=== PATIENT | female | born 1995 | race Caucasian/White ===

== ENCOUNTER → 2019-03-16 | Outpatient (CLI) | payer BC ==
[2019-03-16 17:15] LABS: BASO % 0.2 % (0.0-1.0); EOS % 0.3 % (0.0-3.0); HEMATOCRIT 36.1 % (36.0-47.0); HEMOGLOBIN 12.3 g/dl (12.0-15.5); LYMPH # 1.6 10^3/uL (1.5-5.0); MEAN CORPUSCULAR HEMOGLOBIN 31.8 pg (27.0-33.0); MEAN CORPUSCULAR HGB CONC 34.1 g/dl (32.0-36.5); MEAN CORPUSCULAR VOLUME 93.3 fl (80.0-96.0); MONO # 0.5 10^3/uL (0.0-0.8); MONO % 7.3 % (0.0-5.0); NEUTROPHILS # 4.4 10^3/uL (1.5-8.5); NEUTROPHILS % 66.9 % (36.0-66.0); PLATELET COUNT, AUTOMATED 191 10^3/uL (150-450); RED BLOOD COUNT 3.87 10^6/uL (4.00-5.40); WHITE BLOOD COUNT 6.6 10^3/uL (4.0-10.0)
[2019-03-16 18:06] LABS: CHLAMYDIA DNA AMPLIFICATION NEGATIVE (NEGATIVE); GC DNA AMPLIFICATION NEGATIVE (NEGATIVE)
[2019-03-17 07:44] LABS: HEPATITIS C VIRUS ABY INDEX 0.1 INDEX (<0.8); HIV 1&2 SCREEN CENTAUR NEGATIVE (NEGATIVE); RUBELLA IgG QUALITATIVE IMMUNE (IMMUNE)
== END ==
LOC: M WUC 13:37
PROVIDERS: ATTEND Advanced Practice Midwife
DX: Z36.89 Encounter for other specified antenatal screening (principal)

== ENCOUNTER 2019-03-30 02:49 | Emergency (ER) | payer BC ==
[~2019-03-30] VITALS: Ht 157.5 cm; Wt 54.8 kg
[2019-03-30] MEDS ORDERED: MACR100C43 PO (02:53)
[2019-03-30] MEDS ORDERED: PRENTAB7 PO (02:53)
[2019-03-30 05:15] LABS: BASO % 0.3 % (0.0-1.0); EOS % 0.2 % (0.0-3.0); HEMATOCRIT 34.7 % (36.0-47.0); HEMOGLOBIN 12.2 g/dl (12.0-15.5); LYMPH % 8.6 % (24.0-44.0); MEAN CORPUSCULAR HEMOGLOBIN 32.3 pg (27.0-33.0); MEAN CORPUSCULAR HGB CONC 35.2 g/dl (32.0-36.5); MEAN CORPUSCULAR VOLUME 91.8 fl (80.0-96.0); MONO # 0.5 10^3/uL (0.0-0.8); MONO % 4.3 % (0.0-5.0); NEUTROPHILS # 9.8 10^3/uL (1.5-8.5); NEUTROPHILS % 86.2 % (36.0-66.0); PLATELET COUNT, AUTOMATED 183 10^3/uL (150-450); RED BLOOD COUNT 3.78 10^6/uL (4.00-5.40); WHITE BLOOD COUNT 11.4 10^3/uL (4.0-10.0)
--- NOTE | 2019-03-30 05:55 | ECGEPIP ---
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
[2019-03-30 05:58] LABS: BLOOD UREA NITROGEN 7 MG/DL (7-18); CALCIUM LEVEL 8.5 MG/DL (8.5-10.1); CARBON DIOXIDE LEVEL 24 MEQ/L (21-32); CHLORIDE LEVEL 106 MEQ/L (98-107); CK-MB VALUE MASS < 1.0 NG/ML (<3.6); CPK CREATINE PHOSPHOKINASE 79 U/L (26-192); CREATININE FOR GFR 0.56 MG/DL (0.55-1.30); GLOMERULAR FILTRATION RATE > 60.0 (>60); GLUCOSE, FASTING 85 MG/DL (70-100); MB/CK RELATIVE INDEX 1.27 (< OR =4); SODIUM LEVEL 138 MEQ/L (136-145); TROPONIN I 0.06 NG/ML (< 0.10)
[2019-03-30] MEDS ORDERED: HOLTER MONITOR XX (06:20)
[2019-03-30 06:24] VITALS: BP 94/58
== END 2019-03-30 06:32 | disposition home or self-care (01) ==
LOC: M ED 02:49
DX: R00.2 Palpitations (principal); Z33.1 Pregnant state, incidental; Z79.899 Other long term (current) drug therapy

== ENCOUNTER → 2019-05-12 | Outpatient (REF) | payer BC ==
[~2019-05-12] MED LIST: HOLTER MONITOR XX; MACR100C43 PO; PRENTAB7 PO
== END ==
LOC: M SFHCWAGY 13:23
PROVIDERS: ATTEND Advanced Practice Midwife
DX: Z34.02 Encounter for supervision of normal first pregnancy, second trimester (principal)

== ENCOUNTER → 2019-05-22 | Outpatient (CLI) | payer BC ==
--- NOTE | 2019-05-22 11:01 | REP ---
OBSTETRIC SONOGRAPHY: HISTORY: Supervision of for anatomy. FINDINGS: Scanning through the gravid uterus demonstrates a viable single intrauterine gestation in variable lie. motion is observed and heart rate is recorded at 147 beats per minute. A posterior grade 0 placenta is seen without evidence of abruption. On sagittal transabdominal images, the placental tissue appears to extend to the level of the internal cervical os in a marginal orientation. Followup is suggested. No extrauterine abnormality is observed. No anomaly is seen. The right ventricular cardiac outflow tract view is less than optimally seen due to position. The following additional anatomic structures are identified and felt to be unremarkable: cranium, choroid plexus, cavum, cerebellum posterior fossa, face and profile, lungs, four-chamber heart with left ventricular outflow tract view, diaphragm, left-sided stomach, abdominal wall cord insertion, three-vessel cord, kidneys and bladder, spine, upper and lower extremities. BIOMETRY CHART: BPD 3.8 cm = 17 weeks 5 days HC 16.6 cm = 19 weeks 2 days AC 14.4 cm = 19 weeks 5 days FL 2.9 cm = 19 weeks 0 days HL 2.9 cm = 19 weeks 4 days HC/AC ratio normal 1.16. Cephalic index 0.59 (0.70-0.86). Estimated weight 285 grams, 0 pounds 10 ounces, 27 percentile for 19-week 6 days. IMPRESSION: Viable single intrauterine gestation at 19 weeks 0 days by today's composite sonographic criteria. MYLES by today's sonography October 16, 2019. Right ventricular cardiac outflow tract was less than optimally seen. anatomic survey is otherwise complete. There is a marginal placenta previa at this juncture. Followup imaging is recommended with transvaginal scanning if warranted. Electronically Signed by Pancho Mireles MD 05/22/2019 11:39 A
== END ==
LOC: M RAD 08:28
PROVIDERS: ATTEND Advanced Practice Midwife
DX: Z34.02 Encounter for supervision of normal first pregnancy, second trimester (principal); Z3A.19 19 weeks gestation of pregnancy

== ENCOUNTER → 2019-06-23 | Outpatient (CLI) | payer BC ==
--- NOTE | 2019-06-23 15:35 | REP ---
Obstetric sonography: History: Followup anatomy. Marginal placenta previa. Findings: Scanning through the gravid uterus demonstrates a viable single intrauterine gestation in a breech lie. motion is observed and heart rate is recorded at 136 beats per minute. A low-lying posterior placenta is seen with evidence of marginal or low-lying placenta, placenta tip is 1.8 cm from the internal cervical os on transvaginal images. Closed cervical length is 3.3 cm measured transvaginally. No extrauterine abnormalities observed. There has been appropriate interval growth. There is a trace of fluid around the heart during the examination. No other abnormality is seen. The following anatomic structures are identified and felt to be sonographically unremarkable: cranium, choroid plexus, cavum, cerebellum and posterior fossa, face and profile, lungs, four-chamber heart with left ventricular outflow tract view, diaphragm, left-sided stomach, abdominal wall cord insertion, three-vessel umbilical cord, kidneys and bladder, spine, upper and lower extremities. The right ventricular cardiac outflow tract view is still less than optimally seen due to position. Biometry chart: BPD 5.4 cm = 22 weeks 3 days HC 21.7 cm = 23 weeks 5 days AC 18.5 cm = 23 weeks 2 days FL 4.1 cm = 23 weeks 2 days HL 3.8 cm = 23 weeks 3 days HC/AC ratio normal 1.17. Cephalic index 0.66 (0.70-0.86. Estimated weight 588 grams/1 pound 4 ounces/14th percentile for 24 weeks 3 days. Impression: Viable single intrauterine gestation at 23 weeks 1 day by today's composite sonographic criteria. Low-lying posterior placenta, 1.8 cm from the internal cervical os. Small amount of pericardial fluid noted.
== END ==
LOC: M WHC 08:23
PROVIDERS: ATTEND Advanced Practice Midwife
DX: O44.20 Partial placenta previa NOS or without hemorrhage, unspecified trimester (principal); O32.1XX0 Maternal care for breech presentation, not applicable or unspecified; Z3A.23 23 weeks gestation of pregnancy

== ENCOUNTER → 2019-07-07 | Outpatient (CLI) | payer BC, MEDICAID ==
[2019-07-07 18:38] LABS: HEMATOCRIT 32.1 % (36.0-47.0); HEMOGLOBIN 10.5 g/dl (12.0-15.5); MEAN CORPUSCULAR HGB CONC 32.7 g/dl (32.0-36.5); MEAN CORPUSCULAR VOLUME 97.9 fl (80.0-96.0); PLATELET COUNT, AUTOMATED 219 10^3/uL (150-450); RED BLOOD COUNT 3.28 10^6/uL (4.00-5.40)
== END ==
LOC: M PLALAB 14:27
PROVIDERS: ATTEND Advanced Practice Midwife
DX: O44.42 Low lying placenta NOS or without hemorrhage, second trimester (principal); Z3A.00 Weeks of gestation of pregnancy not specified

== ENCOUNTER → 2019-07-21 | Outpatient (CLI) | payer BC, MEDICAID ==
--- NOTE | 2019-07-21 09:41 | REP ---
Clinical: Anatomical evaluation. Comparison: [birth year]/1928 . Findings: Examination demonstrates a single live intrauterine in cephalic presentation. motion is identified by technologist. Placenta is noted posteriorly, grade 1 and low-lying approximately 1.9 cm from the closed internal os. No evidence for abruption. Amniotic fluid volume is normal. Cervix measures 3.6 cm in length and appears closed. No evidence for nuchal cord. Gestational age by LMP 28 weeks 3 days with MYLES 10/10/2019 . Gestational age by current measurements 27 weeks 3 days with MYLES 10/17/2019 . FHR equals 147 beats per minute. Estimated weight 1111 grams ( 24th percentile). Anatomical assessment demonstrates normal structures including cranium, facial features, lungs, right ventricular outflow tract, diaphragm, stomach, cord insertion/three-vessel cord, kidneys/bladder, and spine. Impression: 1. Single live intrauterine in cephalic presentation demonstrating appropriate interval growth. 2. Posterior low-lying grade 1 placenta. 3. In conjunction with prior examination anatomical assessment is complete and normal.
== END ==
LOC: M WHC 08:08
PROVIDERS: ATTEND Advanced Practice Midwife
DX: O44.42 Low lying placenta NOS or without hemorrhage, second trimester (principal); Z3A.28 28 weeks gestation of pregnancy

== ENCOUNTER → 2019-08-22 | Outpatient (CLI) | payer BC, MEDICAID ==
--- NOTE | 2019-08-22 12:02 | REP ---
OBSTETRIC SONOGRAPHY: HISTORY: Supervision of a third trimester. Followup low-lying placenta. Comparison study July 21, 2019. Findings: Transabdominal scanning demonstrates a single intrauterine gestation in a cephalic lie. motion is observed and heart rate is recorded at 152 beats per minute. A posterior grade 2 placenta is seen without evidence of previa or abruption. Amniotic fluid is subjectively normal. Closed cervical length measures 3.3 cm transabdominally. No extrauterine abnormality is observed. There has been appropriate interval growth. There is no evidence of low-lying placenta at this point. The following anatomic structures are identified and felt to be unremarkable today: cranium, face and profile, diaphragm, left-sided stomach, three-vessel cord, kidneys and bladder. Biometry Chart: BPD 7.9 cm = 31 weeks 4 days HC 28.7 cm = 31 weeks 4 days AC 27.8 cm = 31 weeks 6 days FL 6.1 cm = 31 weeks 5 days HL 5.5 cm = 32 weeks 0 days HC/AC ratio normal 1.03 Cephalic index normal 0.77 Estimated weight 1826 grams, 4 pounds 0 ounces, 20th percentile for 33 weeks 0 days. OG normal 11.0 cm. IMPRESSION: Viable single intrauterine gestation at 31 weeks 2 days by today's composite sonographic criteria. Expected gestational age estimate based on prior sonography is 33 weeks 0 days. MYLES by prior sonography October 10, 2019. A posterior grade 2 placenta without evidence of previa or abruption.
== END ==
LOC: M WHC 08:12
PROVIDERS: ATTEND Advanced Practice Midwife
DX: O44.43 Low lying placenta NOS or without hemorrhage, third trimester (principal)

== ENCOUNTER → 2019-09-11 | Outpatient (REF) | payer BC, MEDICAID, OTHER ==
[~2019-09-11] MED LIST changes: +TUMS500C PO
== END ==
LOC: M SFHCWAGY 10:26
PROVIDERS: ATTEND Nurse Practitioner Women's Health
DX: O44.43 Low lying placenta NOS or without hemorrhage, third trimester (principal)

== ENCOUNTER 2019-09-28 16:16 | Outpatient (CLI) | payer BC, MEDICAID ==
[~2019-09-28] VITALS: Ht 157.5 cm; Wt 67.6 kg
[~2019-09-28 16:16] MED LIST changes: -TUMS500C PO
[2019-09-28 16:34] VITALS: BP 144/86
[2019-09-28 16:45] VITALS: BP 124/72
--- NOTE | 2019-09-28 22:52 | IPN ---
DATE: 09/28/2019 24-year-old, G1, P0 female at 38-2/7 weeks gestation by 9-week ultrasound presents with decreased movement for the last 2 hours. She has actually felt no movements for the last 2 hours. She tried kick counts. The baby is usually very active. She presents to triage. OBJECTIVE: Blood pressure 124/72, pulse 89. No apparent distress. HEAD/NECK EXAM: Normal. LUNGS: Clear. HEART: Regular rate and rhythm. ABDOMEN: Nontender. Gravid. heart tones are category 1. Contractions none. ASSESSMENT: 24-year-old, G1 at 38 and 2 with decreased movement; testing reassuring. PLAN: Patient may discharge to home. Patient perceived numerous movements once she reported to triage. Followup in the office as scheduled.
== END 2019-09-28 17:20 | disposition home or self-care (01) ==
LOC: M LDO 16:16
PROVIDERS: ATTEND Advanced Practice Midwife
DX: O36.8130 Decreased fetal movements, third trimester, not applicable or unspecified (principal); Z3A.38 38 weeks gestation of pregnancy
CPT/HCPCS: 59025; G0378; G0463

== ENCOUNTER 2019-10-11 15:37 | Inpatient (IN) | payer BC, OTHER ==
[~2019-10-11] VITALS: Ht 157.5 cm; Wt 69.1 kg
[2019-10-11 15:53] VITALS: BP 125/97
[2019-10-11] MEDS ORDERED: TUMS500C PO (15:59)
[2019-10-11 16:16] VITALS: BP 119/79
--- NOTE | 2019-10-11 17:21 | HPEPDOC ---
Obstetrical History & Physical General Date of Admission October 11, 2019 at 16:43 Primary Care Physician: A History of Present Illness Shaneka is a 24 year old at 40.1 EGA with an MYLES of 10/10/19 by first trimester US. She presented to labor and delivery complaining of contractions and leakage of clear fluid since 14:00. She initiated care in the first trimester and has been compliant throughout. Age: 24 : 1 Term: 0 Pre-term: 0 Abortions: 0 Livin Care Care: Good Care Dating Final EDC: October 10, 2019 EGA at Admission: 40.1 Past Medical History Past Medical History Medical History Anxiety, PCOS, viral meningitis at age 5 Surgical History: Tonsilectomy, Other (tympanostomy) Family History Significant Family History: No pertinent family hx Social History Marital Status: Family situation: Spouse/partner home Psychosocial History: Anxiety * Smoker: non-smoker Alcohol: Denies Drugs: denies Imunizations Tdap status: current Allergies Coded Allergies: No Known Allergies (Unverified , 03/30/19) Medications Scheduled Calcium Carbonate (Tums) 200 Mg Tab.chew, 2 TAB PO QID for cough and congestion Pnv No.95/Ferrous Fum/Folic AC ( Vitamins Tablet) 1 Each Tablet, 1 TAB PO DAILY Physical Examination Physical Examination GENERAL: Alert and oriented times three. BREAST: . ABDOMEN: Gravid and non-tender to touch. FETUS: Is vertex (VTX) by sterile vaginal examination (SVE), fetus is vertex (VTX) by Jose. HEART RATE: Regular rate and rhythm. LUNGS: Clear to auscultation (CTA). EXTREMITIES: No edema. No clonus. Deep tendon reflexes (DTRs) + . Vital Signs/I&O Vital Signs Date Time Temp Pulse Resp B/P (MAP) Pulse Ox O2 Delivery O2 Flow Rate FiO2 10/11/19 15:53 98.2 80 125/97 (106) Pertinent Laboratoy Data Blood Type: A+ RBC Antibody Screen: Negative HIV: Negative Hepatitis B: Negative Hepatitis C: Negative Rapid Plasma Reagin: Nonreactive Rubella: Immune Chlamydia/Gonorrhea: Negative Group B Streptococcus: Negative Glucose Tolerance Test: 130 (at 1 hour) Other Ultrasounds 05/22/19: Viable single intrauterine gestation at 19 weeks 0 days by today's composite sonographic criteria. MYLES by today's sonography October 16, 2019. Right ventricular cardiac outflow tract was less than optimally seen. anatomic survey is otherwise complete. There is a marginal placenta previa at this juncture. Followup imaging is recommended with transvaginal scanning if warranted 06/23/19: Viable single intrauterine gestation at 23 weeks 1 day by today's composite sonographic criteria. Low-lying posterior placenta, 1.8 cm from the internal cervical os. Small amount of pericardial fluid noted. 07/21/19: Single live intrauterine in cephalic presentation demonstrating appropriate interval growth. Posterior low-lying grade 1 placenta. In conjunction with prior examination anatomical assessment is complete and normal. 08/22/19: Viable single intrauterine gestation at 31 weeks 2 days by today's composite sonographic criteria. Expected gestational age estimate based on prior sonography is 33 weeks 0 days. MYLES by prior sonography October 10, 2019. A posterior grade 2 placenta without evidence of previa or abruption Vaginal Examination Dilation: 2cm Effacement: 80% Station: -2 Cervical Consistency: Soft Cervical Position: Posterior Presentation: Cephalic presentation Position: Vertex (occiput) (by Jose's) Assessment Heart Rate (FHR): 145 Variability: Moderate Accelerations: None Decelerations: None Assessment/Plan Assessment Shaneka is a 24-year-old (G)1 para (P)0-0-0-0 at 40+1 weeks by first trimester ultrasound. Presents to Labor and Delivery (L&D) complaining of leakage of fluid and contractions starting at 1400. 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 Diet: regular. Group B Streptococcus (GBS) negative. Labs and intravenous (IV) per unit protocol. Counseled on Pitocin and augmentation of labor (IOL) if necessary. Desires epidural for coping, anesthesia consult. Anticipate normal spontaneous delivery (). C-S as appropriate. GME ATTESTATION GME ATTESTATION My faculty preceptor for this patient encounter was physically present during the encounter and was fully available. All aspects of the patient interview, examination, medical decision making process, and medical care plan development were reviewed and approved by the faculty preceptor. The faculty preceptor is aware and concurs with the plan as stated in the body of this note and will attest to such by his/her cosignature. CARLEE WATERS D.O. October 11, 2019 17:21
[2019-10-11 17:38] LABS: HEMATOCRIT 32.8 % (36.0-47.0); HEMOGLOBIN 11.1 g/dl (12.0-15.5); MEAN CORPUSCULAR HEMOGLOBIN 30.4 pg (27.0-33.0); MEAN CORPUSCULAR HGB CONC 33.8 g/dl (32.0-36.5); MEAN CORPUSCULAR VOLUME 89.9 fl (80.0-96.0); PLATELET COUNT, AUTOMATED 214 10^3/uL (150-450); RED BLOOD COUNT 3.65 10^6/uL (4.00-5.40); WHITE BLOOD COUNT 9.9 10^3/uL (4.0-10.0)
[2019-10-11 17:45] VITALS: BP 120/78
[2019-10-11] MEDS ORDERED: FENTANYL 2MCG/ML ROPIVACAINE 0.2% IN 0.9% NACL 100ML IVBAG As Ordered ONE (19:12)
[2019-10-11] MEDS ORDERED: REFRIGERATOR IV KEYS XX PRN (19:45)
[2019-10-11] MEDS ORDERED: ONDANSETRON 4MG/2ML VIAL IV PRN (19:45)
[2019-10-11] MEDS ORDERED: EPIDURAL COMMENT XX SCH (19:45)
[2019-10-11] MEDS ORDERED: ePHEDrine SULFATE 25 MG/5 ML(5MG/ML) SYRINGE IV PRN (19:45)
[2019-10-11] MEDS ORDERED: diphenhydrAMINE 50MG/ML VIAL (J1200) IV PRN (19:45)
[2019-10-11] MEDS ORDERED: NALOXONE INJ 0.4MG/1ML VIAL (J2310 PER 1MG) IV PRN (19:45)
[2019-10-11] MEDS ORDERED: EPIDURAL/PCA KEYS XX PRN (19:45)
[2019-10-11] MEDS ORDERED: FENTANYL/ROPIVACAINE/NACL BAG 100 ML EPIDURAL SCH (19:45)
[2019-10-11] MEDS ORDERED: LR 1,000 ML IV SCH (20:03)
[2019-10-11] MEDS ORDERED: OXYTOCIN DRIP 30 UNITS in IV 1 EA IV SCH (20:15)
[2019-10-11] MEDS ORDERED: ACETAMINOPHEN 500 MG TAB PO PRN (22:45)
[2019-10-12 01:13] LABS: CORD GAS ABE V -10.3; CORD GAS HCO3 V 18.1 MEQ/L; CORD GAS O2 SAT V 51.1 %; CORD GAS PCO2 V 48.4 mmHg; CORD GAS PH V 7.19 UNITS; CORD GAS PO2 V 26.9 mmHg; CORD GAS SBC V 15.5 MEQ/L; CORD GAS TCO2 V 19.6 MEQ/L
[2019-10-12] MEDS ORDERED: OXYTOCIN DRIP 30 UNITS in IV 1 EA IV SCH (01:28)
[2019-10-12] MEDS ORDERED: LIDOCAINE 1% MDV 20ML VIAL INFIL ONE (01:30)
[2019-10-12] MEDS ORDERED: RHOGAM 300 MCG (1500 IU) INJ (J2790) IM SCH (01:30)
[2019-10-12] MEDS ORDERED: ACETAMINOPHEN TAB 650MG DOSE (2X325MG) PO PRN (01:30)
[2019-10-12] MEDS ORDERED: IBUPROFEN 600 MG TAB PO PRN (01:30)
[2019-10-12] MEDS ORDERED: DIBUCAINE 1% OINTMENT 30GM TOP PRN (01:30)
[2019-10-12] MEDS ORDERED: DOCUSATE SODIUM 100 MG CAP PO PRN (01:30)
[2019-10-12] MEDS ORDERED: METHYLERGONOVINE MALEATE 0.2 MG TAB PO PRN (01:30)
[2019-10-12] MEDS ORDERED: MEASLES,MUMPS,RUBELLA VACCINE INJ (MMR-II) (90707) SC SCH (01:30)
[2019-10-12 04:13] VITALS: BP 114/65
[2019-10-12 05:35] VITALS: BP 122/61
[2019-10-12] MEDS ORDERED: INFLUENZA QUADRIVALENT PF VACCINE 0.5ML SYRINGE (90686) IM ONE (09:00)
[2019-10-12] MEDS: PRENATAL VITAMINS CHEWABLE TABLET PO SCH (09:21)
[2019-10-12 18:12] VITALS: BP 127/70
[2019-10-12] MEDS: IBUPROFEN 800 MG TAB PO PRN (21:04)
[2019-10-13 05:54] VITALS: BP 110/62
[2019-10-13] MEDS: PRENATAL VITAMINS CHEWABLE TABLET PO SCH (09:39)
[2019-10-13] MEDS: IBUPROFEN 800 MG TAB PO PRN (16:27)
--- NOTE | 2019-10-13 17:17 | DN ---
DATE: 10/12/2019 PREDELIVERY DIAGNOSIS: A 40+ weeks gestation, labor. POSTDELIVERY DIAGNOSIS: Delivered. PROCEDURE: Spontaneous vaginal delivery. SECURITY DELIVERY SPECIALIST: Dr. Kalia Blake ANESTHESIA: Epidural. ESTIMATED BLOOD LOSS: 300 mL. FINDINGS: A 6-pound 10-pounce, 2994 gram female . Venous blood gas 7, 21, 9, base excess -10.3. DELIVERY SUMMARY: After 1 hour second stage of labor, patient had spontaneous delivery of a 6-pouind 10-ounce female infant under epidural anesthesia. Nuchal cord times one was reduced manually. Shoulders delivered with ease. The was handed to the mother. The cord was doubly clamped and cut. Placenta delivered spontaneously and appeared to be intact. Patient received intravenous (IV) Pitocin immediately after delivery of the placenta. A second-degree perineal laceration was repaired under local anesthesia with 2-0 chromic in the usual fashion. Sponge and needle counts were correct.
[2019-10-13 18:10] VITALS: BP 139/88
[2019-10-13] MEDS: ACETAMINOPHEN 500 MG TAB PO PRN (18:14)
[2019-10-14 06:06] VITALS: BP 127/78
[2019-10-14] MEDS: PRENATAL VITAMINS CHEWABLE TABLET PO SCH (07:55)
[2019-10-14] MEDS: ACETAMINOPHEN 500 MG TAB PO PRN (14:02)
== END 2019-10-14 13:50 | disposition home or self-care (01) | DRG 560 ==
LOC: M LDO 15:37 → M LDI 16:43 → M OBS 10-12 03:15
PROVIDERS: ADMIT Advanced Practice Midwife; ATTEND Advanced Practice Midwife
PROC: 10E0XZZ Delivery of Products of Conception, External Approach (ICD-10-PCS; principal; 2019-10-12)
PROC: 0KQM0ZZ Repair Perineum Muscle, Open Approach (ICD-10-PCS; 2019-10-12)
DX: O48.0 Post-term pregnancy (principal); Z37.0 Single live birth; Z3A.40 40 weeks gestation of pregnancy; O69.82X0 Labor and delivery complicated by other cord entanglement, without compression, not applicable or unspecified; O70.1 Second degree perineal laceration during delivery

== ENCOUNTER → 2020-03-11 | Outpatient (REF) | payer OTHER ==
[~2020-03-11] MED LIST changes: +TUMS500C PO
== END ==
LOC: M WUC 12:23
PROVIDERS: ATTEND Physician Assistant
DX: J02.9 Acute pharyngitis, unspecified (principal)

== ENCOUNTER → 2020-07-09 | Outpatient (REF) | payer OTHER, MEDICAID ==
[2020-07-09 15:21] LABS: HEMATOCRIT 37.7 % (36.0-47.0); HEMOGLOBIN 12.4 g/dl (12.0-15.5); MEAN CORPUSCULAR HGB CONC 32.9 g/dl (32.0-36.5); MEAN CORPUSCULAR VOLUME 91.3 fl (80.0-96.0); PLATELET COUNT, AUTOMATED 245 10^3/uL (150-450); RED BLOOD COUNT 4.13 10^6/uL (4.00-5.40); WHITE BLOOD COUNT 7.6 10^3/uL (4.0-10.0)
[2020-07-09 16:33] LABS: HEPATITIS C VIRUS ABY INDEX 0.1 INDEX (<0.8); HIV 1&2 SCREEN CENTAUR NEGATIVE (NEGATIVE)
== END ==
LOC: M PLALAB 13:38
PROVIDERS: ATTEND Advanced Practice Midwife
DX: Z34.91 Encounter for supervision of normal pregnancy, unspecified, first trimester (principal)

== ENCOUNTER → 2020-08-06 | Outpatient (REF) | payer OTHER, MEDICAID | LOC: M SFHCWAGY 12:57 | PROVIDERS: ATTEND Advanced Practice Midwife | DX: Z34.91 Encounter for supervision of normal pregnancy, unspecified, first trimester (principal) ==

== ENCOUNTER → 2020-10-10 | Outpatient (REF) | payer MEDICAID, OTHER | LOC: M SFHCWAGY 15:05 | PROVIDERS: ATTEND Advanced Practice Midwife | DX: O23.40 Unspecified infection of urinary tract in pregnancy, unspecified trimester (principal) ==

== ENCOUNTER → 2020-10-24 | Outpatient (CLI) | payer MEDICAID ==
--- NOTE | 2020-10-24 15:29 | REP ---
INDICATION: INTRAUTERINE GROWTH/MYLES 02/05/21. COMPARISON: 10/03/2020. TECHNIQUE: Real-time sonographic evaluation of the gravid uterus performed. FINDINGS: Estimated gestational age is25 weeks 1 day, EDC 02/05/2021. Today's measurements indicate appropriate growth. Presentation: Breech Placenta anterior, grade 1, without evidence of placenta previa. heart rate is recorded at 138 beats per minute. Amniotic fluid is subjectively normal. Closed cervical length is measured at 4.9 cm. Biometry chart: BPD: 61 mm, 24 weeks 5 days, 41st percentile. HC: 236 mm, 25 weeks 5 days, 62nd percentile AC: 213 mm, 25 weeks 5 6 days, 63rd percentile Femur length: 44 mm, 24 weeks 2 days, 33rd percentile HC to AC ratio: 1.11, normal range 1.01-1.20. Estimated weight: 782g, 42nd percentile. anatomy: Cranium: Grossly normal Lateral Ventricles/Choroid Plexus: Grossly normal Posterior Fossa/Cerebellum: Grossly normal Nose/lips/profile: Grossly normal Four chamber heart: Previously documented. Right ventricular outflow tract: Previously documented. Left ventricular outflow tract: Previously documented. Left-sided stomach: Grossly normal Kidneys: Grossly normal Bladder: Grossly normal Cord Insertion: Grossly normal 3 vessel cord: Grossly normal Spine: Grossly normal IMPRESSION: Viable single intrauterine gestation as above. Appropriate growth. <Electronically signed by Travon Murcia > 10/24/20 [id number]
== END ==
LOC: M WHC 13:24
PROVIDERS: ATTEND Advanced Practice Midwife
DX: O36.5930 Maternal care for other known or suspected poor fetal growth, third trimester, not applicable or unspecified (principal); Z3A.24 24 weeks gestation of pregnancy

== ENCOUNTER → 2020-11-07 | Outpatient (REF) | payer OTHER, MEDICAID ==
[2020-11-07 13:20] LABS: HEMATOCRIT 36.5 % (36.0-47.0); HEMOGLOBIN 11.7 g/dl (12.0-15.5); MEAN CORPUSCULAR HEMOGLOBIN 31.4 pg (27.0-33.0); MEAN CORPUSCULAR HGB CONC 32.1 g/dl (32.0-36.5); MEAN CORPUSCULAR VOLUME 97.9 fl (80.0-96.0); PLATELET COUNT, AUTOMATED 203 10^3/uL (150-450); RED BLOOD COUNT 3.73 10^6/uL (4.00-5.40); WHITE BLOOD COUNT 7.5 10^3/uL (4.0-10.0)
== END ==
LOC: M PLALAB 08:46
PROVIDERS: ATTEND Specialist
DX: Z36.89 Encounter for other specified antenatal screening (principal); Z3A.00 Weeks of gestation of pregnancy not specified

== ENCOUNTER → 2020-11-28 | Outpatient (REF) | payer MEDICAID, OTHER | LOC: M SFHCWAGY 16:53 | PROVIDERS: ATTEND Advanced Practice Midwife | DX: O26.892 Other specified pregnancy related conditions, second trimester (principal); O23.42 Unspecified infection of urinary tract in pregnancy, second trimester ==

== ENCOUNTER → 2021-01-16 | Outpatient (REF) | payer MEDICAID, OTHER | LOC: M SFHCWAGY 16:55 | PROVIDERS: ATTEND Obstetrics & Gynecology | DX: Z34.83 Encounter for supervision of other normal pregnancy, third trimester (principal); Z3A.37 37 weeks gestation of pregnancy ==

== ENCOUNTER 2021-02-10 18:05 | Inpatient (IN) | payer OTHER, MEDICAID ==
[2021-02-10] VITALS (12 sets, daily range): BP systolic 109–131; BP diastolic 67–86
[~2021-02-10] VITALS: Ht 157.5 cm; Wt 71.0 kg
[2021-02-10] MEDS ORDERED: LACTATED RINGER'S 1000 ML IV STA (18:39)
[2021-02-10] MEDS ORDERED: OXYTOCIN DRIP 30 UNITS in IV 1 EA IV PRN (18:40)
[2021-02-10] MEDS ORDERED: LIDOCAINE 1% MDV 20ML VIAL INFIL PRN (18:40)
[2021-02-10] MEDS ORDERED: CARBOPROST TROMETHAMINE 250 MCG/ML AMP IM PRN (18:40)
[2021-02-10] MEDS ORDERED: TRANEXAMIC ACID INJection 1,000 MG in NS 100 ML IV PRN (18:40)
[2021-02-10] MEDS ORDERED: METHYLERGONOVINE MALEATE 0.2 MG/ML VIAL (J2210) IM PRN (18:40)
[2021-02-10] MEDS ORDERED: LR 1,000 ML IV SCH (18:40)
[2021-02-10] MEDS ORDERED: HOME MED LIST COMPLETE! XX SCH (19:15)
--- NOTE | 2021-02-10 19:25 | HPEPDOC ---
Obstetrical History & Physical General Date of Admission Feb 10, 2021 at 18:05 Primary Care Physician: ANSON BARRY CNM History of Present Illness Shaneka is a 25-year-old female who is a with an MYLES of 02/05/21 based off of her LMP and consistent with her first trimester ultrasound. She initiated care in her first trimester of at [facility]. Her has been complicated by anxiety (not taking medications for) and she was diagnosed with Covid in September 2020. She presents to L&D for an elective induction of labor. She reports active movement and occasional contractions. She denies vaginal bleeding or leaking of fluid. Chief Complaint: Induction of labor Information Provided By: Patient Age: 25 : 2 Term: 1 Pre-term: 0 Abortions: 0 Livin Care Care: Good Care Dating Final EDC: Feb 05, 2021 Final EDC by: LMP EGA at Admission: 40.5 Past Medical History Past Obstetrical History : Past Obstetrical History: Primgravida Date of Delivery: October 12, 2019 Gestation: 40.2 Type of Delivery: Spontaneous Vaginal Del. Sex of Infant: Female Complications: Yes (meconium) MASSOTHERAPIST History: No pertinent history Past Medical History Medical History ovarian cysts viral meningitis anxiety with panic disorder PCOS Surgical History: Tonsilectomy, Other (adenoidectomy and tympanostomy) Family History Significant Family History: Cancer, Diabetes, Heart disease, Hypertension, Lung disease, Other (Parkinson's; manic depression; endometriosis) Social History Marital Status: Family situation: Spouse/partner home Psychosocial History: Anxiety * Smoker: non-smoker Alcohol: Denies Drugs: denies Abuse Violence Screening Have you been hit/kicked/slapp: No Have you been sexually assault: No Imunizations Tdap status: current Allergies Coded Allergies: No Known Drug Allergies (Verified Allergy, Unknown, 02/10/21) Medications Scheduled Calcium Carbonate (Tums) 200 Mg Tab.chew, 2 TAB PO QID for cough and congestion Physical Examination Physical Examination GENERAL: Alert and oriented times three. ABDOMEN: Gravid and non-tender to touch. FETUS: Is vertex (VTX) by sterile vaginal examination (SVE), fetus is vertex (VTX) by Jose. LUNGS: Clear to auscultation (CTA). EXTREMITIES: No edema. No clonus. Deep tendon reflexes (DTRs) + 2. Vital Signs/I&O Vital Signs Label Value Date Time Patient Temperature 98.1 degrees F 02/10/211835 Temperature Source Temporal 02/10/211835 Pulse 94 02/10/211835 Respiratory Rate 16 bpm 02/10/211835 Blood Pressure Assessment 119/82 (94) 02/10/211835 Source Automatic Cuff (NIBP) Bedside Pulse Oximetry 98 % 02/10/211835 Laboratory Data 24H LABS Laboratory Tests 2 02/10/21 18:18: Serology Scanned Report Hepatitis B Testing Urine Culture: Escherichia (E.) Coli (repeat was normal) Pertinent Laboratoy Data Blood Type: A+ RBC Antibody Screen: Negative HIV: Negative Hepatitis B: Negative Hepatitis C: Negative Rapid Plasma Reagin: Nonreactive Rubella: Immune Chlamydia/Gonorrhea: Negative Group B Streptococcus: Negative Glucose Tolerance Test: 111 Vaginal Examination Dilation: 4 cm Effacement: other (75%) Station: -2 Cervical Consistency: Soft Cervical Position: Posterior Presentation: Cephalic presentation Assessment Heart Rate (FHR): 130 Variability: Moderate Accelerations: Positive Decelerations: None Tocometer Contractions: Yes Frequency: irregular Assessment/Plan Assessment IUP at 40.5 weeks gestation GBS negative Category I FHR tracing elective induction of labor Plan Admit to L&D. OOB ad frandy. Diet: clears. Group B Streptococcus (GBS) negative. Labs and intravenous (IV) per unit protocol. Counseled on Cytotec, robledo bulb and IV Pitocin for induction of labor (IOL). Lactated Ringers (LR): Bolus 800 mL prior to epidural, then at 125 mL/hr. Anticipate cervical change and . C-S as appropriate. ANSON BARRY CNM Feb 10, 2021 19:25
[2021-02-10] MEDS ORDERED: OXYTOCIN 30 UNITS IN 0.9% NaCl 500ML IV BAG (J2590) As Ordered ONE (20:06)
[2021-02-10 20:21] LABS: HEMATOCRIT 33.2 % (36.0-47.0); HEMOGLOBIN 10.8 g/dl (12.0-15.5); MEAN CORPUSCULAR HEMOGLOBIN 28.2 pg (27.0-33.0); MEAN CORPUSCULAR HGB CONC 32.5 g/dl (32.0-36.5); MEAN CORPUSCULAR VOLUME 86.7 fl (80.0-96.0); PLATELET COUNT, AUTOMATED 204 10^3/uL (150-450); RED BLOOD COUNT 3.83 10^6/uL (4.00-5.40); WHITE BLOOD COUNT 5.9 10^3/uL (4.0-10.0)
[2021-02-10] MEDS ORDERED: OXYTOCIN DRIP 30 UNITS in IV 1 EA IV SCH (20:40)
[2021-02-10] MEDS ORDERED: FENTANYL 2MCG/ML ROPIVACAINE 0.2% IN 0.9% NACL 100ML IVBAG As Ordered ONE (22:27)
[2021-02-10] MEDS ORDERED: FENTANYL/ROPIVACAINE/NACL BAG 100 ML EPIDURAL SCH (23:35)
[2021-02-10] MEDS ORDERED: ONDANSETRON 4MG/2ML VIAL IV PRN (23:35)
[2021-02-10] MEDS ORDERED: ePHEDrine SULFATE 25 MG/5 ML(5MG/ML) SYRINGE IV PRN (23:35)
[2021-02-10] MEDS ORDERED: REFRIGERATOR IV KEYS XX PRN (23:35)
[2021-02-10] MEDS ORDERED: diphenhydrAMINE 50MG/ML VIAL (J1200) IV PRN (23:35)
[2021-02-10] MEDS ORDERED: NALOXONE INJ 0.4MG/1ML VIAL (J2310 PER 1MG) IV PRN (23:35)
[2021-02-10] MEDS ORDERED: LACTATED RINGER'S 1000 ML IV PRN (23:35)
[2021-02-10] MEDS ORDERED: EPIDURAL COMMENT XX SCH (23:35)
[2021-02-10] MEDS ORDERED: EPIDURAL/PCA KEYS XX PRN (23:35)
[2021-02-11] VITALS (23 sets, daily range): BP systolic 90–129; BP diastolic 51–75
--- NOTE | 2021-02-11 00:33 | IPNPDOC ---
Obstetrical Progress Note Date of Service Feb 11, 2021 Subjective Patient reports she is comfortable with epidural. Objective Vital Signs Date Time Temp Pulse Resp B/P (MAP) Pulse Ox O2 Delivery O2 Flow Rate FiO2 02/10/21 18:36 98.1 94 16 119/82 (94) 98 Assessment Heart Rate (FHR): 120 Variability: Moderate Accelerations: Positive Decelerations: None Heart Rate Tracing: Category I Tocometer Contractions: Yes Frequency: regular, every 2-2 min. Sterile Vaginal Examination Dilation: 4 cm Effacement (%): 80% Station: -2 Cervical Consistency: Soft Cervical Position: Anterior Postion/Presentation: Cephalic presentation Assessment and Plan Age: 25 : 2 Term: 1 Pre-term: 0 Abortions: 0 Livin EGA at Admission: 40.5 Weeks & Days 40.6 Status: Reassuring Group B Streptococcus: Negative Anticipate: Vaginal Delivery Additional Comments Bulging bag of membranes. Head ballotable. IV Pitocin at 4 mu/min. ANSON BARRY CNM Feb 11, 2021 00:33
--- NOTE | 2021-02-11 05:23 | IPNPDOC ---
Obstetrical Progress Note Date of Service Feb 11, 2021 Subjective Patient is comfortable with her epidural. Objective Vital Signs Date Time Temp Pulse Resp B/P (MAP) Pulse Ox O2 Delivery O2 Flow Rate FiO2 02/11/21 01:22 62 105/57 (73) 02/10/21 23:30 97.5 02/10/21 18:36 16 02/10/21 18:36 98 Assessment Heart Rate (FHR): 120 Variability: Moderate Accelerations: Positive Decelerations: None Heart Rate Tracing: Category I Tocometer Contractions: Yes Frequency: regular Sterile Vaginal Examination Dilation: 9 cm Effacement (%): 90% Station: 0 Cervical Position: Anterior Postion/Presentation: Cephalic presentation Assessment and Plan Age: 25 : 2 Term: 1 Pre-term: 0 Abortions: 0 Livin EGA at Admission: 40.5 Weeks & Days 40.6 today Status: Reassuring Group B Streptococcus: Negative Anticipate: Vaginal Delivery Additional Comments IV Pitocin at 16 mu/min. AROM to a small amount of clear fluid. ANSON BARRY CNM Feb 11, 2021 05:23
[2021-02-11] MEDS ORDERED: CALCIUM CARBONATE 500 MG CHEW U/D PO ONE (05:45)
[2021-02-11] MEDS ORDERED: IBUPROFEN 600MG TAB PO PRN (07:00)
[2021-02-11] MEDS ORDERED: DOCUSATE SODIUM 100MG CAPSULE PO PRN (07:00)
[2021-02-11] MEDS ORDERED: RHOGAM 300 MCG (1500 IU) INJ (J2790) IM SCH (07:00)
[2021-02-11] MEDS ORDERED: METHYLERGONOVINE MALEATE 0.2 MG TAB PO PRN (07:00)
[2021-02-11] MEDS ORDERED: ACETAMINOPHEN 500 MG TAB PO PRN (07:00)
[2021-02-11] MEDS ORDERED: DIBUCAINE 1% OINTMENT 30GM TOP PRN (07:00)
[2021-02-11] MEDS ORDERED: MEASLES,MUMPS,RUBELLA VACCINE INJ (MMR-II) (90707) SC SCH (07:00)
[2021-02-11] MEDS ORDERED: ACETAMINOPHEN TAB 650MG DOSE (2X325MG) PO PRN (07:00)
[2021-02-11] MEDS ORDERED: ANUSOL HC CREAM 30GM TOP PRN (07:00)
--- NOTE | 2021-02-11 07:41 | DNPDOC ---
[facility] Delivery Note Delivery Note DATE OF DELIVERY: 02/11/21 at 0633 PREDELIVERY DIAGNOSIS: 40-5/7 weeks' gestation and induction of labor. POST DELIVERY DIAGNOSIS: Delivered. PROCEDURE: Spontaneous vaginal delivery. Poultry Farm Supervisor: Anson Chase CNM ANESTHESIA: epidural. ESTIMATED BLOOD LOSS: 200 mL. FINDINGS: 8 pounds 2 ounces; 3680 grams; male , Score 7/8, nuchal cord times 1 loose; shoulder dystocia (30 sec); left compound arm. DELIVERY SUMMARY: Shaneka is a 25-year-old female who is now a who presented to L&D for an elective IOL at 40.5 weeks. She received IV Pitocin for induction of labor. She requested an epidural for pain management. The patient progressed to fully dilated at 0530 and pushed to a living male in the TRU position with restitution to ROT. A loose nuchal cord was noted and a left compound hand. A shoulder dystocia was noted and the anterior shoulder delivered after reposition, lowering the head of the bed, and Corkscrew maneuver. The corpus delivered and the baby was placed [id number] active and crying with stimulation. The cord was clamped x2 and cut by the FOB. The placenta delivered spontaneously and intact at 0635. Uterine hemostasis was achieved via rapid infusion of IV Pitocin and fundal massage. The vagina, cervix, and perineum was inspected and found to have a second degree perineal laceration that was repaired with a 3.[address]-1. They plan on naming him Shravan. Mom plans to breastfeed. Both mom and baby are in stable condition. All counts of instruments and sponges are correct. ANSON CHASE CNM Feb 11, 2021 07:41
[2021-02-11] MEDS: IBUPROFEN 800 MG TAB PO PRN ×2 (08:04→16:31)
[2021-02-11] MEDS: PRENATAL VITAMINS CHEWABLE TABLET PO SCH (08:04)
[2021-02-11] MEDS ORDERED: INFLUENZA QUADRIVALENT PF VACCINE 0.5ML SYRINGE IM ONE (10:50)
[2021-02-12 06:05] VITALS: BP 130/78
[2021-02-12] MEDS: PRENATAL VITAMINS CHEWABLE TABLET PO SCH (10:03)
[2021-02-12] MEDS: IBUPROFEN 800 MG TAB PO PRN (10:04)
== END 2021-02-12 13:40 | disposition home or self-care (01) | DRG 560 ==
LOC: M LDI 18:05 → M OBS 02-11 09:34
PROVIDERS: ADMIT Advanced Practice Midwife; ATTEND Advanced Practice Midwife
PROC: 3E033VJ Introduction of Other Hormone into Peripheral Vein, Percutaneous Approach (ICD-10-PCS; 2021-02-10)
PROC: 10E0XZZ Delivery of Products of Conception, External Approach (ICD-10-PCS; principal; 2021-02-11)
PROC: 0KQM0ZZ Repair Perineum Muscle, Open Approach (ICD-10-PCS; 2021-02-11)
DX: O48.0 Post-term pregnancy (principal); O66.0 Obstructed labor due to shoulder dystocia; Z37.0 Single live birth; Z3A.40 40 weeks gestation of pregnancy; O69.81X0 Labor and delivery complicated by cord around neck, without compression, not applicable or unspecified; O70.1 Second degree perineal laceration during delivery

== ENCOUNTER → 2022-02-19 | Outpatient (CLI) | payer OTHER, MEDICAID ==
[2022-02-19 13:28] LABS: HEMATOCRIT 39.3 % (36.0-47.0); HEMOGLOBIN 12.9 g/dl (12.0-15.5); MEAN CORPUSCULAR HEMOGLOBIN 30.6 pg (27.0-33.0); MEAN CORPUSCULAR HGB CONC 32.8 g/dl (32.0-36.5); MEAN CORPUSCULAR VOLUME 93.1 fl (80.0-96.0); PLATELET COUNT, AUTOMATED 242 10^3/uL (150-450); RED BLOOD COUNT 4.22 10^6/uL (4.00-5.40)
[2022-02-19 14:14] LABS: HCG, SERUM QUALITATIVE NEGATIVE (NEGATIVE)
[2022-02-19 14:40] LABS: FREE T4 1.08 NG/DL (0.76-1.46)
[2022-02-20 17:07] LABS: TESTOSTERONE FREE (DIRECT) 1.1 pg/mL (0.0-4.2)
== END ==
LOC: M PLALAB 09:36
PROVIDERS: ATTEND Advanced Practice Midwife
DX: N92.1 Excessive and frequent menstruation with irregular cycle (principal); N94.10 Unspecified dyspareunia; R39.89 Other symptoms and signs involving the genitourinary system

== ENCOUNTER → 2022-02-19 | Outpatient (REF) | payer OTHER, MEDICAID | LOC: M PLALAB 09:39 | PROVIDERS: ATTEND Advanced Practice Midwife | DX: Z12.4 Encounter for screening for malignant neoplasm of cervix (principal) ==

== ENCOUNTER → 2022-02-24 | Outpatient (CLI) | payer OTHER | LOC: M WHC 13:34 | PROVIDERS: ATTEND Advanced Practice Midwife | DX: N92.1 Excessive and frequent menstruation with irregular cycle (principal) ==

== ENCOUNTER → 2022-06-05 | Outpatient (REF) ==
[2022-06-05 14:51] LABS: RSV AMPLIFICATION NEGATIVE (NEGATIVE)
== END ==
LOC: M EMP 13:29
PROVIDERS: ATTEND Family Medicine
DX: Z20.818 Contact with and (suspected) exposure to other bacterial communicable diseases (principal)

== ENCOUNTER 2022-09-23 08:10 | Day surgery (SDC) | payer OTHER ==
[~2022-09-23] VITALS: Ht 157.5 cm; Wt 52.1 kg
[~2022-09-23 08:10] MED LIST changes: +ETON68IM SC; +LR 1,000 ML IV SCH
[2022-09-23] MEDS ORDERED: ONDANSETRON 4MG 2ML VIAL As Ordered ONE ×2 (08:52→12:03)
[2022-09-23] MEDS ORDERED: KETOROLAC 60MG 2ML VIAL As Ordered ONE (08:52)
[2022-09-23] MEDS ORDERED: propofoL 200 MG/20 ML VIAL As Ordered ONE (08:52)
[2022-09-23] MEDS ORDERED: LIDOCAINE 2% 100MG/5ML SDV (FOR ANES.) As Ordered ONE (08:52)
[2022-09-23] MEDS ORDERED: LR 1,000 ML IV SCH (08:55)
[2022-09-23] MEDS ORDERED: fentaNYL 100 MCG/2 ML INJECTION As Ordered ONE ×2 (08:56→12:03)
[2022-09-23] MEDS ORDERED: MIDAZOLAM INJ 2MG/2ML VIAL As Ordered ONE (08:56)
[2022-09-23 09:20] LABS: HEMATOCRIT 38.5 % (36.0-47.0); HEMOGLOBIN 12.6 g/dl (12.0-15.5); MEAN CORPUSCULAR HEMOGLOBIN 30.7 pg (27.0-33.0); MEAN CORPUSCULAR HGB CONC 32.7 g/dl (32.0-36.5); MEAN CORPUSCULAR VOLUME 93.7 fl (80.0-96.0); PLATELET COUNT, AUTOMATED 218 10^3/uL (150-450); RED BLOOD COUNT 4.11 10^6/uL (4.00-5.40); WHITE BLOOD COUNT 4.3 10^3/uL (4.0-10.0)
[2022-09-23] MEDS ORDERED: SUGAMMADEX SODIUM 500 MG/5 ML VIAL (BRIDION) As Ordered ONE (09:36)
[2022-09-23] MEDS ORDERED: ROCURONIUM BROMIDE 50MG/5ML VIAL As Ordered ONE (09:36)
[2022-09-23] MEDS ORDERED: SCOPOLAMINE 1MG TRANSDERMAL PATCH TOP SCH (10:05)
[2022-09-23] MEDS ORDERED: ACETAMINOPHEN 1000MG 100ML IV BAG As Ordered ONE (10:15)
[2022-09-23] MEDS ORDERED: BUPIVACAINE HCL 0.25% 30ML VIAL As Ordered ONE (10:48)
[2022-09-23] MEDS ORDERED: ACETAMINOPHEN 500 MG TAB PO PRN (11:50)
[2022-09-23] MEDS ORDERED: HYDROMORPHONE HCL 0.5 MG/ 0.5 ML SYRINGE IV PRN (11:50)
[2022-09-23] MEDS ORDERED: fentaNYL 100 MCG/2 ML INJECTION IV PRN (12:00)
[2022-09-23] MEDS ORDERED: oxyCODONE 5MG TAB PO PRN (12:00)
[2022-09-23] MEDS ORDERED: ONDANSETRON 4MG 2ML VIAL IV PRN (12:00)
[2022-09-23 14:00] VITALS: BP 118/68
== END 2022-09-23 14:05 | disposition home or self-care (01) ==
LOC: M SDC 08:10
PROVIDERS: ATTEND Obstetrics & Gynecology
DX: Z30.2 Encounter for sterilization (principal); Z30.46 Encounter for surveillance of implantable subdermal contraceptive; F41.9 Anxiety disorder, unspecified
CPT/HCPCS: 11982; 36415; 58661; 81025; 85027; 86850; 86900; 86901; 88302; J0131; J1100; J1885; J2250; J2405; J3010

== ENCOUNTER → 2022-10-07 | Outpatient (CLI) | payer OTHER ==
[~2022-10-07] MED LIST changes: -LR 1,000 ML IV SCH
[2022-10-07 18:13] LABS: HEPATITIS B SURFACE ANTIGEN NEGATIVE (NEGATIVE)
[2022-10-07 18:27] LABS: HIV 1&2 SCREEN CENTAUR NEGATIVE (NEGATIVE)
[2022-10-07 18:34] LABS: HEPATITIS B CORE ANTIBODY IGM NEGATIVE (NEGATIVE)
== END ==
LOC: M PLALAB 14:31
PROVIDERS: ATTEND Obstetrics & Gynecology
DX: Z20.2 Contact with and (suspected) exposure to infections with a predominantly sexual mode of transmission (principal); R30.0 Dysuria

== ENCOUNTER → 2022-10-07 | Outpatient (REF) | payer OTHER, MEDICAID ==
[2022-10-07 18:23] LABS: APPEARANCE, URINE HAZY (CLEAR); BACTERIA, URINE AUTO 3+ (NEGATIVE); BILIRUBIN, URINE AUTO NEGATIVE (NEGATIVE); BLOOD, URINE BLOOD NEGATIVE (NEGATIVE); COLOR, URINE YELLOW (YELLOW); GLUCOSE, URINE (UA) AUTO NEGATIVE (NEGATIVE); KETONE, URINE AUTO NEGATIVE (NEGATIVE); LEUKOCYTE ESTERASE, URINE AUTO 1+ (NEGATIVE); MUCUS, URINE SMALL (NEGATIVE); NITRITE, URINE AUTO POSITIVE (NEGATIVE); PROTEIN, URINE AUTO NEGATIVE (NEGATIVE); RBC, URINE AUTO 2 /HPF (0-3); SPECIFIC GRAVITY URINE AUTO 1.024 (1.002-1.035); SQUAMOUS EPITHELIAL CELL UR AU 4 /HPF (0-6); UROBILINOGEN, URINE AUTO 0.2 mg/dL (0.0-2.0); WBC, URINE AUTO 10 /HPF (0-3)
[2022-10-07 20:09] LABS: GC DNA AMPLIFICATION NEGATIVE (NEGATIVE)
== END ==
LOC: M PLALAB 14:26
PROVIDERS: ATTEND Obstetrics & Gynecology
DX: R30.0 Dysuria (principal); Z20.2 Contact with and (suspected) exposure to infections with a predominantly sexual mode of transmission

== ENCOUNTER → 2023-05-19 | Outpatient (REF) | LOC: M EMP 13:00 | PROVIDERS: ATTEND Family Medicine | DX: Z11.52 Encounter for screening for COVID-19 (principal) ==

== ENCOUNTER 2023-06-09 08:16 | Emergency (ER) | payer MEDICAID, OTHER ==
[~2023-06-09] VITALS: Ht 157.5 cm; Wt 56.8 kg
[2023-06-09 10:46] LABS: APPEARANCE, URINE HAZY (CLEAR); BACTERIA, URINE AUTO 3+ (NEGATIVE); BILIRUBIN, URINE AUTO NEGATIVE (NEGATIVE); BLOOD, URINE BLOOD 1+ (NEGATIVE); COLOR, URINE YELLOW (YELLOW); GLUCOSE, URINE (UA) AUTO NEGATIVE (NEGATIVE); KETONE, URINE AUTO NEGATIVE (NEGATIVE); LEUKOCYTE ESTERASE, URINE AUTO 3+ (NEGATIVE); NITRITE, URINE AUTO POSITIVE (NEGATIVE); PROTEIN, URINE AUTO NEGATIVE (NEGATIVE); RBC, URINE AUTO 4 /HPF (0-3); SPECIFIC GRAVITY URINE AUTO 1.024 (1.002-1.035); SQUAMOUS EPITHELIAL CELL UR AU 5 /HPF (0-6); UROBILINOGEN, URINE AUTO 0.2 mg/dL (0.0-2.0); WBC, URINE AUTO 33 /HPF (0-3)
[2023-06-09 11:48] LABS: BASO % 0.1 % (0.0-1.0); EOS % 0.2 % (0.0-3.0); HEMATOCRIT 37.6 % (36.0-47.0); HEMOGLOBIN 12.7 g/dl (12.0-15.5); LYMPH # 1.4 10^3/uL (1.5-5.0); LYMPH % 16.6 % (24.0-44.0); MEAN CORPUSCULAR HGB CONC 33.8 g/dl (32.0-36.5); MEAN CORPUSCULAR VOLUME 94.7 fl (80.0-96.0); MONO # 0.4 10^3/uL (0.0-0.8); MONO % 4.7 % (2.0-8.0); NEUTROPHILS # 6.8 10^3/uL (1.5-8.5); NEUTROPHILS % 78.3 % (36.0-66.0); PLATELET COUNT, AUTOMATED 196 10^3/uL (150-450); RED BLOOD COUNT 3.97 10^6/uL (4.00-5.40); WHITE BLOOD COUNT 8.7 10^3/uL (4.0-10.0)
[2023-06-09 12:19] LABS: BLOOD UREA NITROGEN 9 MG/DL (9-23); CALCIUM LEVEL 8.7 MG/DL (8.5-10.1); CARBON DIOXIDE LEVEL 26 MMOL/L (20-31); CHLORIDE LEVEL 107 MMOL/L (98-107); CREATININE FOR GFR 0.58 MG/DL (0.55-1.30); GLOMERULAR FILTRATION RATE > 60.0 (>60); GLUCOSE, FASTING 83 MG/DL (60-100); POTASSIUM SERUM 4.1 MMOL/L (3.5-5.1); SODIUM LEVEL 138 MMOL/L (136-145)
[2023-06-09] MEDS ORDERED: KETOROLAC 30 MG/ML 1ML VIAL IV ONE (12:30)
[2023-06-09] MEDS ORDERED: ISOVUE-370 76% 100ML VIAL As Ordered ONE (12:44)
[2023-06-09 13:11] VITALS: BP 111/64; TEMP 99.1; O2SAT 100
[2023-06-09] MEDS ORDERED: BACTRIM 160MG/800MG DS TAB PO ONE (14:15)
[2023-06-09] MEDS ORDERED: BACT800T5 PO (14:16)
== END 2023-06-09 14:23 | disposition home or self-care (01) ==
LOC: M ED 08:16
DX: N39.0 Urinary tract infection, site not specified (principal); Z79.3 Long term (current) use of hormonal contraceptives; Z79.2 Long term (current) use of antibiotics
CPT/HCPCS: 74177; 80048; 81001; 84702; 85025; 96374; 99284; J1885; Q9967